=== PATIENT | male | born 1960 | race African-American/Black ===

== ENCOUNTER 2019-09-03 20:28 | Emergency (ER) | payer OTHER, MEDICAID ==
[~2019-09-03] VITALS: Ht 182.9 cm; Wt 90.0 kg
[~2019-09-03 20:28] MED LIST: SOMAS; VICODIN
[2019-09-03] MEDS ORDERED: HYDROCODONE/ACETAMINOPHEN 5/325MG TABLET PO ONE (21:15)
[2019-09-03 22:27] VITALS: BP 146/107
== END 2019-09-03 22:29 | disposition home or self-care (01) ==
LOC: ER 20:28
DX: M54.5 Low back pain (principal); M79.604 Pain in right leg; V49.49XA Driver injured in collision with other motor vehicles in traffic accident, initial encounter; Y93.89 Activity, other specified; Y92.410 Unspecified street and highway as the place of occurrence of the external cause
CPT/HCPCS: 72100; 99283